=== PATIENT | female | born 1945 | race Caucasian/White ===

== ENCOUNTER 2017-05-01 12:39 | Outpatient (CLI) | payer MEDICARE, OTHER ==
--- NOTE | 2017-05-01 13:44 | XRAY Report ---
RIGHT HIP AND PELVIS: 05/01/2017 CLINICAL INDICATION: Right hip pain, sudden worsening today. FINDINGS: Frontal view of the hips and pelvis and frogleg lateral view of the right hip demonstrates moderate right hip osteoarthritis. There is no evidence of fracture or dislocation. No radiopaque fo reign body is appreciated in the soft tissues. IMPRESSION: MODERATE RIGHT HIP OSTEOARTHRITIS. JOB #: [id number] EXT JOB #:[id number]
== END 2017-05-01 12:40 | disposition home or self-care (01) ==
LOC: DI 12:39
PROVIDERS: ATTEND Physician Assistant Medical
DX: M16.11 Unilateral primary osteoarthritis, right hip (principal)

== ENCOUNTER 2017-05-09 08:29 | Outpatient (CLI) | payer MEDICARE, OTHER ==
[2017-05-09 12:21] LABS: ALBUMIN/GLOBULIN RATIO 1.6 (1.0-2.2); BILIRUBIN,TOTAL 0.9 mg/dL (0.2-1.0); BUN - BLOOD UREA NITROGEN 19 mg/dL (6-20); CALCIUM 8.9 mg/dL (8.5-10.3); CARBON DIOXIDE - CO2 31 mmol/L (21-32); CHLORIDE 99 mmol/L (101-111); CHOL/HDL RATIO 2.5 (<4.4); CHOLESTEROL 220 mg/dL; CREATININE 0.8 mg/dL (0.4-1.0); GFR - MDRD 70 (>89); GLUCOSE 91 mg/dL (70-100); HDL CHOLESTEROL 87 mg/dL; LDL/HDL RATIO 1.4 (<4.4); POTASSIUM 3.8 mmol/L (3.5-5.0); SODIUM 136 mmol/L (135-145); TOTAL PROTEIN 6.8 g/dL (6.7-8.2); TRIGLYCERIDES 66 mg/dL; VLDL CHOLESTEROL 13 mg/dL
[2017-05-09 13:01] LABS: BASOPHILS % (AUTO) 0.6 %; EOSINOPHILS # (AUTO) 0.1 10^3/uL (0.0-0.7); EOSINOPHILS % (AUTO) 1.3 %; HGB - HEMOGLOBIN 14.1 g/dL (12.0-16.0); LYMPHOCYTES # (AUTO) 1.5 10^3/uL (1.5-3.5); LYMPHOCYTES % (AUTO) 24.3 %; MEAN PLATELET VOLUME 9.5 fL (7.9-10.8); MONOCYTES # (AUTO) 0.5 10^3/uL (0.0-1.0); MONOCYTES % (AUTO) 7.9 %; NEUTROPHILS # (AUTO) 4.1 10^3/uL (1.5-6.6); NEUTROPHILS % (AUTO) 65.9 %; RED CELL DISTRIBUTION WIDTH 12.6 % (12.0-15.0); UNCORRECTED WHITE BLOOD COUNT 6.3 x10^3/uL; WHITE BLOOD COUNT 6.3 x10^3/uL (4.8-10.8)
[2017-05-09 13:05] LABS: MEAN CORPUSCULAR HEMOGLOBIN 32.8 pg (27.0-31.0); MEAN CORPUSCULAR VOLUME 97.6 fL (81.0-99.0)
[2017-05-09 13:06] LABS: MEAN CORPUSCULAR HGB CONC 33.6 g/dL (32.0-36.0)
== END 2017-05-09 08:30 | disposition home or self-care (01) ==
LOC: LAB.R 08:29
PROVIDERS: ATTEND Physician Assistant Medical
DX: Z00.00 Encounter for general adult medical examination without abnormal findings (principal); E03.9 Hypothyroidism, unspecified
CPT/HCPCS: 80053; 80061; 84443; 85025

== ENCOUNTER 2018-03-04 08:00 | Outpatient (CLI) | payer MEDICARE, OTHER ==
[2018-03-04 14:27] LABS: THYROID STIMULATING HORMONE 1.33 uIU/mL (0.34-5.60)
[2018-03-04 14:28] LABS: FREE T4 (FREE THYROXINE) 1.71 ng/dL (0.58-1.64)
== END 2018-03-04 08:01 ==
LOC: LAB.R 08:00
PROVIDERS: ATTEND Physician Assistant Medical
DX: I48.91 Unspecified atrial fibrillation (principal); E03.9 Hypothyroidism, unspecified; Z79.899 Other long term (current) drug therapy
CPT/HCPCS: 84439; 84443; 84481

== ENCOUNTER 2018-06-09 08:00 | Outpatient (CLI) | payer MEDICARE, OTHER ==
[2018-06-09 13:04] LABS: BASOPHILS % (AUTO) 0.1 %; EOSINOPHILS % (AUTO) 0.5 %; HGB - HEMOGLOBIN 14.1 g/dL (12.0-16.0); LYMPHOCYTES # (AUTO) 1.3 10^3/uL (1.5-3.5); LYMPHOCYTES % (AUTO) 17.8 %; MEAN CORPUSCULAR HEMOGLOBIN 33.5 pg (27.0-31.0); MEAN CORPUSCULAR HGB CONC 34.6 g/dL (32.0-36.0); MEAN CORPUSCULAR VOLUME 96.6 fL (81.0-99.0); MEAN PLATELET VOLUME 8.6 fL (7.9-10.8); MONOCYTES # (AUTO) 0.8 10^3/uL (0.0-1.0); NEUTROPHILS # (AUTO) 5.3 10^3/uL (1.5-6.6); NEUTROPHILS % (AUTO) 70.6 %; PLT - PLATELET COUNT 238 10^3/uL (130-450); RED BLOOD COUNT 4.22 10^6/uL (4.20-5.40); WHITE BLOOD COUNT 7.5 x10^3/uL (4.8-10.8)
[2018-06-09 13:15] LABS: ALBUMIN/GLOBULIN RATIO 1.4 (1.0-2.2); CALCIUM 9.1 mg/dL (8.5-10.3); CREATININE 0.8 mg/dL (0.4-1.0); TOTAL PROTEIN 6.8 g/dL (6.7-8.2)
== END 2018-06-09 23:59 ==
LOC: LAB.R 08:00
PROVIDERS: ATTEND Physician Assistant Medical
DX: Z79.899 Other long term (current) drug therapy (principal); I48.91 Unspecified atrial fibrillation
CPT/HCPCS: 80053; 80299; 81599; 84443; 85025

== ENCOUNTER 2018-07-02 08:20 | Outpatient (CLI) | payer MEDICARE, OTHER ==
[2018-07-02 13:22] LABS: CHOL/HDL RATIO 2.6 (<4.4); CHOLESTEROL 184 mg/dL; HDL CHOLESTEROL 70 mg/dL; LDL CHOLESTEROL,CALCULATED 102 mg/dL; LDL/HDL RATIO 1.5 (<4.4); VLDL CHOLESTEROL 12 mg/dL
== END 2018-07-02 08:21 | disposition home or self-care (01) ==
LOC: LAB.R 08:20
PROVIDERS: ATTEND Physician Assistant Medical
DX: Z79.899 Other long term (current) drug therapy (principal); I48.91 Unspecified atrial fibrillation; E78.2 Mixed hyperlipidemia; E03.9 Hypothyroidism, unspecified
CPT/HCPCS: 80061; 83721

== ENCOUNTER 2018-07-29 13:04 | Outpatient (CLI) | payer MEDICARE, OTHER ==
--- NOTE | 2018-07-30 11:03 | DEXA Report ---
Reason: POSTMENOPAUSAL Procedure Date: 07/29/2018 Accession Number: [id number] / [id number] Procedure: DEX - Dexa Spine and/or Hip CPT Code: FULL RESULT: EXAM: Dexa Spine and/or Hip DATE: 07/29/2018 1:55 PM CLINICAL HISTORY: POSTMENOPAUSAL TECHNIQUE: Dual energy x-ray absorptiometry (DXA) was performed on a [employer] System. Regions measured are the AP Spine, femoral neck, and if needed forearm. COMPARISON: None. In accordance with the International Society for Clinical Densitometry (ISCD) guidelines, data from previous exams may be reanalyzed using current recommendations and techniques. This is done to allow a more accurate basis for comparison with the current study. FINDINGS: The data for the lumbar spine is as follows: BMD (g/cm/cm) T-SCORE Z-SCORE REGION L1 1.075 -0.5 1.4 L2 1.396 1.6 3.5 L3 1.560 3.0 4.8 L4 1.360 1.3 3.2 TOTAL 1.366 1.5 3.4 NOTE: All evaluable vertebrae are used for classification The data for the hip is as follows: BMD (g/cm/cm) T-SCORE Z-SCORE REGION Neck 0.889 -1.1 0.9 TOTAL 0.944 -0.5 1.3 NOTE: The femoral neck or total proximal femur, whichever is lowest, is used for classification. IMPRESSION: THE WHO CLASSIFICATION BASED ON THE INTERNATIONAL REFERENCE STANDARD IS OSTEOPENIA. THE FRACTURE RISK IS INCREASED. Please note that the patient is osteopenic by femoral neck criteria only. RECOMMENDATION: Patients with diagnosis of osteoporosis or osteopenia should have regular bone mineral density assessment. For those eligible for Medicare, routine testing is allowed once every 2 years. Testing frequency can be increased for patients who have rapidly progressing disease or for those who are receiving medical therapy to restore bone mass. COMMENT: World Health Organization (WHO) definitions for osteoporosis and osteopenia: NORMAL BMD: T-score at -1.0 or higher, fracture risk is low OSTEOPENIA BMD: T-score between -1.0 and -2.5, fracture risk is increased. OSTEOPOROSIS BMD: T-score at -2.5 or lower, fracture risk is high. National Osteoporosis Foundation recommends: 1. Obtain adequate dietary calcium (at least 1200 mg per day) and vitamin D (400-800 international units per day). 2. Participate, as appropriate, in regular weightbearing and muscle-strengthening exercise. 3. Avoid tobacco use and reduce alcohol and caffeine intake. 4. For more detailed information see the website at www.NOF.org.
== END 2018-07-29 13:05 | disposition home or self-care (01) ==
LOC: DI 13:04
PROVIDERS: ATTEND Physician Assistant Medical
DX: M85.89 Other specified disorders of bone density and structure, multiple sites (principal); Z78.0 Asymptomatic menopausal state
CPT/HCPCS: 77080

== ENCOUNTER 2018-07-29 13:04 | Outpatient (CLI) | payer MEDICARE, OTHER ==
--- NOTE | 2018-07-30 14:08 | Mammography Report ---
Reason: BILAT SCREEN wTOMO Procedure Date: 07/29/2018 Accession Number: [id number] / [id number] Procedure: SHARON - Screening Mammo w/Jose Alfredo CPT Code: FULL RESULT: EXAM: Screening Mammo w/Jose Alfredo DATE: 07/29/2018 2:24 PM CLINICAL HISTORY: 72-year-old female with history of left breast biopsy with benign pathology results and history of late childbearing. TECHNIQUE: Bilateral CC and MLO views were obtained. COMPARISON: 08/15/2016, 08/08/2015, 08/09/2014, 07/01/2013. FINDINGS: The breasts demonstrate scattered fibroglandular densities bilaterally. Left breast postbiopsy changes are stable. No suspicious masses, clustered microcalcifications, or regions of architectural distortion are identified. IMPRESSION: Benign findings RECOMMENDATION: Routine annual screening unless otherwise clinically indicated. BIRADS CATEGORY 2: Benign findings STANDARD QUALIFYING STATEMENTS: 1. This examination was not reviewed with the aid of Computer-Aided Detection (CAD). 2. A negative or benign imaging report should not delay biopsy if clinically suspicious findings are present. Consider surgical consultation if warrented. More than 5% of cancers are not identified by imaging. 3. Dense breasts may obscure an underlying neoplasm. 4. This examination was reviewed with the aid of 3D breast imaging (tomosynthesis).
== END 2018-07-29 13:05 | disposition home or self-care (01) ==
LOC: DI 13:04
PROVIDERS: ATTEND Physician Assistant Medical
DX: Z12.31 Encounter for screening mammogram for malignant neoplasm of breast (principal)
CPT/HCPCS: 77063; 77067

== ENCOUNTER 2019-07-30 08:56 | Outpatient (CLI) | payer MEDICARE, OTHER ==
[2019-07-30 09:36] LABS: ALBUMIN 4.3 g/dL (3.2-5.5); ALBUMIN/GLOBULIN RATIO 1.5 (1.0-2.2); ALKALINE PHOSPHATASE 71 IU/L (42-121); ALT ALANINE AMINOTRANSFERASE 20 IU/L (10-60); AST ASPARTATE AMINOTRANSFERASE 24 IU/L (10-42); BILIRUBIN,TOTAL 1.3 mg/dL (0.2-1.0); BUN - BLOOD UREA NITROGEN 17 mg/dL (6-20); CALCIUM 9.1 mg/dL (8.5-10.3); CARBON DIOXIDE - CO2 31 mmol/L (21-32); CHLORIDE 100 mmol/L (101-111); CHOL/HDL RATIO 2.6 (<4.4); CHOLESTEROL 208 mg/dL; CREATININE 0.8 mg/dL (0.4-1.0); GFR - MDRD 70 (>89); GLUCOSE 105 mg/dL (70-100); HDL CHOLESTEROL 80 mg/dL; LDL CHOLESTEROL,CALCULATED 117 mg/dL; LDL/HDL RATIO 1.5 (<4.4); SODIUM 140 mmol/L (135-145); TOTAL PROTEIN 7.1 g/dL (6.7-8.2); VLDL CHOLESTEROL 11 mg/dL
[2019-07-30 09:59] LABS: BASOPHILS % (AUTO) 0.5 %; EOSINOPHILS # (AUTO) 0.1 10^3/uL (0.0-0.7); EOSINOPHILS % (AUTO) 1.2 %; HGB - HEMOGLOBIN 14.3 g/dL (12.0-16.0); LYMPHOCYTES # (AUTO) 2.1 10^3/uL (1.5-3.5); LYMPHOCYTES % (AUTO) 31.5 %; MEAN CORPUSCULAR HEMOGLOBIN 31.9 pg (27.0-31.0); MEAN CORPUSCULAR HGB CONC 32.2 g/dL (32.0-36.0); MEAN PLATELET VOLUME 10.5 fL (7.9-10.8); MONOCYTES # (AUTO) 0.5 10^3/uL (0.0-1.0); MONOCYTES % (AUTO) 7.3 %; NEUTROPHILS # (AUTO) 3.9 10^3/uL (1.5-6.6); NEUTROPHILS % (AUTO) 59.3 %; PLT - PLATELET COUNT 259 10^3/uL (130-450); RED BLOOD COUNT 4.48 10^6/uL (4.20-5.40); RED CELL DISTRIBUTION WIDTH 13.1 % (12.0-15.0); WHITE BLOOD COUNT 6.5 x10^3/uL (4.8-10.8)
[2019-07-30 10:03] LABS: MEAN CORPUSCULAR VOLUME 99.1 fL (81.0-99.0)
== END 2019-07-30 08:57 | disposition home or self-care (01) ==
LOC: LAB 08:56
PROVIDERS: ATTEND Nurse Practitioner
DX: Z79.899 Other long term (current) drug therapy (principal); Z00.00 Encounter for general adult medical examination without abnormal findings; I48.91 Unspecified atrial fibrillation; E78.2 Mixed hyperlipidemia; E03.9 Hypothyroidism, unspecified
CPT/HCPCS: 36415; 80053; 80061; 83721; 84443; 85025

== ENCOUNTER 2020-07-19 14:31 | Outpatient (CLI) | payer MEDICARE, OTHER ==
--- NOTE | 2020-07-20 14:13 | Mammography Report ---
BILATERAL DIGITAL SCREENING MAMMOGRAM 3D/2D: 07/19/2020 CLINICAL: Routine screening. Comparison is made to exams dated: 07/29/2018 mammogram, 08/15/2016 mammogram, 08/08/2015 mammogram, 08/09/2014 mammogram, 07/01/2013 mammogram, and 05/16/2011 mammogram - [facility]. Th e tissue of both breasts is predominantly fatty. There is a 0.4 cm oval mass in the right breast posterior depth lateral region seen on the craniocaud al view only 4.6 cm from the nipple. No other significant masses, calcifications, or other findings are seen in either breast. IMPRESSION: INCOMPLETE: NEEDS ADDITIONAL IMAGING EVALUATION The 0.4 cm oval mass in the right breast is indeterminate. Additional views with possible ultrasound are recommended. This exam was interpreted at Station ID: [id number]. NOTE: For mammograms, a report in lay terms will be sent to the patient. Approximately 15% of breast malignancies will not be visualized mammographically. In the management of a palpable breast mass, a negative mammogram must not discourage biopsy of a clinically suspicious lesion. Electronically Signed By: Virgilio Lane M.D., jr/nina:07/19/2020 16:16:47 ACR BI-RADS Category 0: Incomplete 3340F PARENCHYMAL PATTERN: (F) - The breast(s) demonstrate(s) diffuse fatty replacement. BI-RADS CATEGORY: (0) - 0 Mammo and [place] [id number] Immediate follow-up LATERALITY: (B)
== END 2020-07-19 14:32 | disposition home or self-care (01) ==
LOC: DI 14:31
PROVIDERS: ATTEND Internal Medicine
DX: Z12.31 Encounter for screening mammogram for malignant neoplasm of breast (principal); R92.8 Other abnormal and inconclusive findings on diagnostic imaging of breast
CPT/HCPCS: 77063; 77067

== ENCOUNTER 2020-08-19 08:07 | Outpatient (CLI) | payer MEDICARE, OTHER ==
--- NOTE | 2020-08-22 16:27 | Ultrasound Report ---
LIMITED ULTRASOUND OF RIGHT BREAST: 08/19/2020 CLINICAL: Patient returns for additional imaging over a suspected mass in the right breast. Comparison is made to exams dated: 08/19/2020 mammogram, 07/19/2020 mammogram, 07/29/2018 mammogram, 1 mammogram, 08/08/2015 mammogram, and 08/09/2014 mammogram - [facility]. Real-time ultrasound of the right breast upper outer quadrant was performed. Villatoro scale images of th e real-time examination were reviewed. No significant abnormalities were seen sonographically in the right breast. Incidental note of a 3mm simple cyst in the 9:00 position, 4cm from the nipple. A prominent fat lobule is also noted at the 11 :00 position, 5 cm from the nipple. IMPRESSION: NEGATIVE There is no sonographic evidence of malignancy. There is no abnormality seen in the right breast to correspond with the mammography finding which lik jada represents normal fibroglandular tissue. A 1 year screening mammogram is recommended. Findings and recommendations were conveyed to the patient during today's evaluation. This exam was interpreted at Station ID: [id number]. Electronically Signed By: Varun Fitch M.D. aty/:08/19/2020 11:28:12 Ultrasound BI-RADS: 1 Negative BI-RADS CATEGORY: (1) - 1 RECOMMENDATION: (ANNUAL) - Recommend routine annual screening mammography. [id number] 1 year screening LATERALITY: (B)
--- NOTE | 2020-08-22 16:27 | Mammography Report ---
UNILATERAL RIGHT DIGITAL DIAGNOSTIC MAMMOGRAM 3D/2D: 08/19/2020 CLINICAL: Patient returns for additional imaging over a suspected mass in the right breast. Comparison is made to exams dated: 07/19/2020 mammogram, 07/29/2018 mammogram, 08/15/2016 mammogram, 1 mammogram, and 08/09/2014 mammogram - [facility]. The tissue of right br east is predominantly fatty. The 0.4 cm oval asymmetry in the right breast posterior depth lateral region seen on the craniocaudal view only 4.6 cm from the nipple is not seen in additional views. It disperses with additional vie ws and is consistent with summation artifact. No other significant masses or calcifications are seen in the breast. IMPRESSION: INCOMPLETE: NEEDS ADDITIONAL IMAGING EVALUATION The previously described asymmetry in the right breast posterior depth disperses with additional view s and is consistent with summation artifact; however, ultrasound is recommended to confirm and is dyana eduled to immediately follow this examination. This exam was interpreted at Station ID: [id number]. NOTE: For mammograms, a report in lay terms will be sent to the patient. Approximately 15% of breast malignancies will not be visualized mammographically. In the management of a palpable breast mass, a negative mammogram must not discourage biopsy of a clinically suspicious lesion. Electronically Signed By: Varun Fitch M.D. aty/:08/19/2020 11:25:44 ACR BI-RADS Category 0: Incomplete 3340F PARENCHYMAL PATTERN: (F) - The breast(s) demonstrate(s) diffuse fatty replacement. BI-RADS CATEGORY: (0) - 0 Ultrasound [id number] Immediate follow-up LATERALITY: (R)
== END 2020-08-19 08:08 | disposition home or self-care (01) ==
LOC: DI 08:07
PROVIDERS: ATTEND Internal Medicine
DX: R92.8 Other abnormal and inconclusive findings on diagnostic imaging of breast (principal)
CPT/HCPCS: 76642

== ENCOUNTER 2021-09-28 10:54 | Outpatient (CLI) | payer MEDICARE, OTHER ==
--- NOTE | 2021-09-28 16:54 | DEXA Report ---
PROCEDURE: Dexa Spine and/or Hip INDICATIONS: POST MENOPAUSAL TECHNIQUE: Dual energy x-ray absorptiometry (DXA) was performed on a [employer] System. Regions measur ed are the AP Spine, femoral neck, and if needed forearm. COMPARISON: 07/29/2018. FINDINGS: Lumbar Spine: Bone Mineral Density 1.348 g/cm/cm,T score 1.4. There is interval 1.3% decrease in total lumbar sp ine bone mineral density. Left Hip: Bone Mineral Density 0.937 g/cm/cm,T score -0.6. There is interval 0.7% decrease in total left hip b one mineral density. Left Femoral Neck: Bone Mineral Density 0.878 g/cm/cm, T score -1.2. (T score greater or equal to -1.0: NORMAL) (T score from -1.1 to -2.4: OSTEOPENIA) (T score less than or equal to -2.5 to: OSTEOPOROSIS) Impression: Osteopenia. Patients with diagnosis of osteoporosis or osteopenia should have regular bone mineral density assess ment. For those eligible for Medicare, routine testing is allowed once every 2 years. Testing frequ ency can be increased for patients who have rapidly progressing disease or for those who are receivin g medical therapy to restore bone mass. Reviewed by: Deonte Lynch MD on 09/28/2021 4:53 PM PST Approved by: Deonte Lynch MD on 09/28/2021 4:53 PM PST Station ID: [id number]
== END 2021-09-28 10:55 | disposition home or self-care (01) ==
LOC: DI 10:54
PROVIDERS: ATTEND Internal Medicine
DX: Z78.0 Asymptomatic menopausal state (principal); M85.88 Other specified disorders of bone density and structure, other site

== ENCOUNTER 2022-08-30 15:15 | Outpatient (CLI) | payer MEDICARE, OTHER ==
--- NOTE | 2022-08-30 18:46 | XRAY Report ---
PROCEDURE: Finger(s) RT INDICATIONS: THUMB PAIN TECHNIQUE: AP hand, 2 views of the thumb acquired. COMPARISON: None FINDINGS: Bones: No fractures or dislocations. No suspicious bony lesions. Severe degenerative arthritis of t he first carpometacarpal joint with severe joint space loss and osteophytosis. Mild first MCP degener ative arthritis. Soft tissues: No suspicious soft tissue calcifications. 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 Mild MCP joint degenerative arthritis. Reviewed by: Paul Sagastume MD on 08/30/2022 6:44 PM PDT Approved by: Paul Sagastume MD on 08/30/2022 6:44 PM PDT Station ID: [id number]
== END 2022-08-30 15:16 | disposition home or self-care (01) ==
LOC: DI 15:15
PROVIDERS: ATTEND Internal Medicine
DX: S69.91XA Unspecified injury of right wrist, hand and finger(s), initial encounter (principal); M18.11 Unilateral primary osteoarthritis of first carpometacarpal joint, right hand; M19.041 Primary osteoarthritis, right hand

== ENCOUNTER 2022-09-27 12:25 | Outpatient (CLI) | payer MEDICARE, OTHER ==
--- NOTE | 2022-09-27 13:40 | XRAY Report ---
PROCEDURE: Wrist 3 View LT INDICATIONS: LEFT HAND AND WRIST PAIN TECHNIQUE: 3 views of the wrist were acquired. COMPARISON: None FINDINGS: Bones: No fractures or dislocations. No suspicious bony lesions. Severe degenerative changes are p resent at the first CMC joint. Soft tissues: No suspicious soft tissue calcifications. IMPRESSION: Severe osteoarthritis at the first CMC joint. Reviewed by: Katie Beth MD on 09/27/2022 1:38 PM PST Approved by: Katie Beth MD on 09/27/2022 1:38 PM PST Station ID: [id number]
--- NOTE | 2022-09-27 13:41 | XRAY Report ---
PROCEDURE: Hand 3 View LT INDICATIONS: LEFT HAND AND WRIST PAIN TECHNIQUE: 3 views of the hand(s) acquired. COMPARISON: Reviews of the wrist dated 09/27/2022 FINDINGS: Bones: No fractures or dislocations. No suspicious bony lesions. Severe degenerative changes are p resent at the first CMC joint. There is likely subluxation of the first metacarpal. Soft tissues: No suspicious soft tissue calcifications. IMPRESSION: Severe osteoarthritis and subluxation at the first CMC joint. Reviewed by: Katie Beth MD on 09/27/2022 1:39 PM PST Approved by: Katie Beth MD on 09/27/2022 1:39 PM PST Station ID: [id number]
== END 2022-09-27 12:26 | disposition home or self-care (01) ==
LOC: DI 12:25
PROVIDERS: ATTEND Internal Medicine
DX: M18.12 Unilateral primary osteoarthritis of first carpometacarpal joint, left hand (principal); S63.042A Subluxation of carpometacarpal joint of left thumb, initial encounter

== ENCOUNTER 2022-10-23 08:00 | Outpatient (CLI) | payer MEDICARE, OTHER ==
[2022-10-23 16:32] LABS: BILIRUBIN,URINE NEGATIVE (NEGATIVE); GLUCOSE, URINE (UA) NEGATIVE (NEGATIVE); KETONES,URINE (UA) NEGATIVE (NEGATIVE); LEUKOCYTE ESTERASE, URINE MODERATE (NEGATIVE); NITRITE,URINE NEGATIVE (NEGATIVE); OCCULT BLOOD,URINE NEGATIVE (NEGATIVE); PH,URINE 7.5 PH (5.0-7.5); PROTEIN,URINE NEGATIVE (NEGATIVE); UROBILINOGEN,URINE 0.2 (NORMAL) E.U./dL (NORMAL)
[2022-10-23 16:41] LABS: ALBUMIN 4.1 g/dL (3.2-5.5); ALBUMIN/GLOBULIN RATIO 1.5 (1.0-2.2); ALKALINE PHOSPHATASE 97 IU/L (42-121); ALT ALANINE AMINOTRANSFERASE 31 IU/L (10-60); AST ASPARTATE AMINOTRANSFERASE 36 IU/L (10-42); BILIRUBIN,TOTAL 1.6 mg/dL (0.2-1.0); BUN - BLOOD UREA NITROGEN 21 mg/dL (6-20); CALCIUM 8.9 mg/dL (8.5-10.3); CARBON DIOXIDE - CO2 29 mmol/L (21-32); CHLORIDE 97 mmol/L (101-111); CHOL/HDL RATIO 2.5 (<4.4); CHOLESTEROL 232 mg/dL; CREATININE 0.8 mg/dL (0.4-1.0); GFR - MDRD 69 (>89); GLUCOSE 91 mg/dL (70-100); HDL CHOLESTEROL 92 mg/dL; LDL CHOLESTEROL,CALCULATED 127 mg/dL; LDL/HDL RATIO 1.4 (<4.4); POTASSIUM 3.8 mmol/L (3.5-5.0); SODIUM 135 mmol/L (135-145); TOTAL PROTEIN 6.9 g/dL (6.7-8.2); TRIGLYCERIDES 65 mg/dL; VLDL CHOLESTEROL 13 mg/dL
[2022-10-23 16:44] LABS: BASOPHILS % (AUTO) 0.5 %; EOSINOPHILS % (AUTO) 0.5 %; HGB - HEMOGLOBIN 14.5 g/dL (12.0-16.0); LYMPHOCYTES # (AUTO) 1.7 10^3/uL (1.5-3.5); LYMPHOCYTES % (AUTO) 28.4 %; MEAN CORPUSCULAR HEMOGLOBIN 32.7 pg (27.0-31.0); MEAN CORPUSCULAR HGB CONC 33.7 g/dL (32.0-36.0); MEAN CORPUSCULAR VOLUME 96.8 fL (81.0-99.0); MONOCYTES # (AUTO) 0.5 10^3/uL (0.0-1.0); MONOCYTES % (AUTO) 8.7 %; NEUTROPHILS # (AUTO) 3.6 10^3/uL (1.5-6.6); NEUTROPHILS % (AUTO) 61.6 %; RED BLOOD COUNT 4.44 10^6/uL (4.20-5.40); RED CELL DISTRIBUTION WIDTH 12.4 % (12.0-15.0); WHITE BLOOD COUNT 5.9 x10^3/uL (4.8-10.8)
[2022-10-23 16:49] LABS: THYROID STIMULATING HORMONE 0.81 uIU/mL (0.34-5.60)
[2022-10-23 16:55] LABS: CLARITY,URINE HAZY (CLEAR)
[2022-10-23 16:56] LABS: BACTERIA,URINE Moderate /HPF (None Seen); RBC,URINE 0-5 /HPF (0-5); SQUAMOUS EPITHELIAL CELL,UR MOD Squamous (<= Few)
[2022-10-23 17:11] LABS: PLATELET ESTIMATE, MANUAL DECREASED (<130,000) (NORMAL); SLIDE REVIEW? Indicated
== END 2022-10-23 23:59 | disposition home or self-care (01) ==
LOC: LAB.R 08:00
PROVIDERS: ATTEND Internal Medicine
DX: Z00.00 Encounter for general adult medical examination without abnormal findings (principal); I48.91 Unspecified atrial fibrillation; D75.89 Other specified diseases of blood and blood-forming organs; C43.9 Malignant melanoma of skin, unspecified; R41.3 Other amnesia; R45.89 Other symptoms and signs involving emotional state; M19.90 Unspecified osteoarthritis, unspecified site; J30.2 Other seasonal allergic rhinitis; Z79.899 Other long term (current) drug therapy; E78.5 Hyperlipidemia, unspecified; E03.9 Hypothyroidism, unspecified; R39.9 Unspecified symptoms and signs involving the genitourinary system
CPT/HCPCS: 80053; 80061; 81001; 81003; 82607; 83721; 84443; 85025; 87086